=== PATIENT | female | born 1935 | race African-American/Black ===

== ENCOUNTER 2016-11-22 07:43 | Emergency (ER) | payer OTHER ==
[~2016-11-22] VITALS: Ht 170.2 cm; Wt 86.0 kg
[2016-11-22 09:58] LABS: HEMATOCRIT 39.9 % (36.0-46.0); MCHC 31.1 G/DL (30.0-36.0); MCV 90.1 FL (83-99); MEAN PLAT.VOLUME 11.3 uM^3 (9.5-12.4); PLATELET COUNT 199 K/uL (156-360); RBC DIS.WIDTH-CV 13.9 % (11.8-14.6); RBC DIS.WIDTH-SD 45.7 % (39-53); RED BLOOD COUNT 4.43 M/uL (3.80-5.20); WHITE BLOOD COUNT 4.2 K/uL (4.1-10.2)
[2016-11-22 10:15] LABS: CHLORIDE 107 mEq/L (99-109); SODIUM 140 mEq/L (136-147)
[2016-11-22 10:17] LABS: GLUCOSE 232 mg/dL (70-99); TROP-I INTERPRETATION NEGATIVE; TROPONIN-I 0.03 ng/mL (0.0-0.30)
[2016-11-22 10:18] LABS: ANION GAP 6 MEQ/L (2-14)
[2016-11-22 10:19] LABS: TOTAL BILIRUBIN 0.6 mg/dL (0.0-1.0)
[2016-11-22 10:20] LABS: ALKALINE PHOSPHATASE 79 IU/L (3-129)
[2016-11-22 10:21] LABS: GFR ESTIMATE (CALCULATED) > 59 mL/min/
[2016-11-22 10:22] LABS: UREA NITROGEN (BUN) 9 mg/dL (9-23)
[2016-11-22 10:24] LABS: LIPASE 27 U/L (1.0-51.0)
[2016-11-22 10:33] LABS: ADD MIUA? YES; BILIRUBIN NEGATIVE; BLOOD SMALL; COLOR YELLOW ((YELLOW)); GLUCOSE (STRIP) >=500; KETONES NEGATIVE; LEUKOCYTES TRACE; NITRITE NEGATIVE; PROTEIN (STRIP) NEGATIVE; SPECIFIC GRAVITY 1.009 (1.000-1.030); UROBILINOGEN 0.2 MG/DL (0.2-1.0)
[2016-11-22 10:35] LABS: BACTERIA RARE /HPF; EPITHELIAL CELLS RARE /HPF; MUCUS TRACE /LPF; RED BLOOD CELLS 0-5 /HPF (0-5); WHITE BLOOD CELLS 0-5 /HPF (0-5)
[2016-11-22] MEDS ORDERED: LEVO-T25 MCG PO (10:36)
[2016-11-22 11:03] VITALS: BP 155/65
== END 2016-11-22 11:03 | disposition home or self-care (01) ==
LOC: EME 07:43
PROVIDERS: Nurse Practitioner Family
DX: R42 Dizziness and giddiness (principal); E11.9 Type 2 diabetes mellitus without complications; I10 Essential (primary) hypertension; E89.0 Postprocedural hypothyroidism
CPT/HCPCS: 70450; 71020; 80053; 81003; 83690; 84484; 85027; 93005; 99281; 99284